=== PATIENT | female | born 2000 | race Caucasian/White ===

== ENCOUNTER 2024-03-22 17:21 | Emergency (ER) | payer BC, SELFPAY ==
[2024-03-22 17:23] VITALS: BP 118/72; PULSE 85; RESP 16; TEMP 36.1; O2SAT 98; BMI 29.0
--- NOTE | 2024-03-22 17:45 | EDS_ITS ---
HPI HPI - GI History of Present Illness Chief Complaint: Abd Pain Informant: patient and parent Narrative Narrative: 23-year-old female started having diffuse abdominal pain going up into her chest last night 9 PM while she was lying down it started. Since then she has noticed some worsening when she lies down which she states she cannot do, compared with being upright. She states the discomfort seems colicky. It is nonlateralizing, throughout her lower abdomen, up into her epigastrium and up into the mid chest. She has discomfort throughout her entire back all the way up to the shoulder blades but again nonlateralizing. She states her menstrual cycle started a day or so prior to yesterday, heavier than usual. She takes control medication and states she should not be . PFSH PFS Home Medications ?Medication ?Instructions ?Recorded ?Last Taken ?Type drospirenone 3 mg-ethinyl 1 tab PO DAILY 03/22/24 Unknown History estradiol 0.02 mg tablet hydrocodone-acetaminophen 5-325mg 1 tab PO Q6H PRN PRN Pain 2 days 03/22/24 Unknown Rx 5mg-325mg #6 TABLETS hyoscyamine sulfate 0.125 mg 0.125 mg PO Q6H PRN abdominal 03/22/24 Unknown Rx sublingual tablet (Levsin/SL) discomfort #15 tabs pantoprazole 40 mg tablet,delayed 40 mg PO DAILY #14 tabs 03/22/24 Unknown Rx release paroxetine HCl 10 mg tablet 10 mg PO QHS 03/22/24 Unknown History Allergy/AdvReac Type Severity Reaction Status Date / Time No Known Allergies Allergy Verified 03/22/24 17:22 Surgical History History of appendectomy Social History Smoking Status: Never smoker ROS ROS ED Constitutional Constitutional ED: Denies chills or fever(s) Eyes Eyes: Denies change in vision or diplopia ENT ENT ED: Denies rhinorrhea or sore throat Cardiovascular Cardiovascular: Denies chest pain or palpitations Respiratory/Chest Respiratory/Chest: Denies cough or dyspnea Gastrointestinal Gastrointestinal: Reports abdominal pain, diarrhea and nausea; Denies hematochezia, melena or vomiting Genitourinary Genitourinary ED: Reports vaginal bleeding and other Details: On menstrual cycle x 3 days ; Denies dysuria or hematuria Musculoskeletal Musculoskeletal: Reports back pain; Denies neck pain Integumentary Denies abscess or rash Neurologic Neurologic: Denies headache(s), paresthesias or weakness Psychiatric Psychiatric: Denies suicidal thoughts EXAM Physical Exam Const Vital Signs: 03/22/24 17:23 03/22/24 19:21 03/22/24 21:00 Temperature 97 F L Temperature Source Temporal Pulse Rate 85 69 84 Respiratory Rate 16 16 18 Blood Pressure 118/72 100/62 142/65 H Blood Pressure Mean 87 74 90 Pulse Ox 98 100 100 Oxygen Delivery Method Room Air Room Air Room Air Positive well nourished and well developed General Appearance ED: well developed and NAD HEENT Reports moist mucous membranes normocephalic and atraumatic Eyes PERRL and EOMs intact bilaterally Neck full ROM and supple Resp normal respiratory effort and clear to auscultation bilaterally Cardio regular rate, regular rhythm and no murmurs GI non-tender and non-distended Auscultation: normoactive bowel sounds Palpation: soft Speculum Exam - Vagina: vaginal bleeding Back/Spine no CVA tenderness General Back: other FROM Extremity normal to inspection General Extremety ED: Negative for edema, pulses abnormal or tenderness General Extremity: Negative for edema or pulses abnormal Neuro oriented x3, CN's II-XII intact bilaterally and no sensory deficits noted Sensorium / Orientation: awake and alert Motor Exam: strength 5/5 throughout Skin no rashes or lesions noted and no wounds MDM MDM MDM Narrative Medical decision making narrative: Patient with fairly diffuse symptoms and going up into her chest. Broad differential of intra-abdominal pathology here. She is tender in multiple areas across lower abdomen and epigastrium. Given the chest involvement and the worsening when lying down, I considered acid reflux and gastritis, so we started with a GI cocktail and dicyclomine along with some Zofran and IV fluids while obtaining liver enzymes, basic labs and lipase. In addition to that, EKG and chest x-ray were performed, two-view chest, both normal on my interpretation. Troponin is normal arguing against myocarditis or injury. Her liver enzymes are all normal, she has no leukocytosis, normal lipase, negative ruling out ectopic, and urinalysis unremarkable except for microscopic hematuria. However she is on her menstrual cycle, so this is probably contamination and not coming from the urinary tract given the history. On reevaluation, she is not feeling any better after the GI cocktail and dicyclomine. She states the pain is moved up more now and she points to the right upper quadrant. Therefore I think she may have more yield from an ultrasound than a CT scan, so obtain an ultrasound of the gallbladder and giving her Toradol and morphine for her pain. These medications really helped and she was feeling much better for the duration of the ED visit. I reviewed the ultrasound images and report which I agree with, it is normal with no stones. Although biliary colic is not impossible without stones it is much less likely. She is not having any ancillary evidence of acute cholecystitis. I reexamined her she was still having some mild right lower quadrant and epigastric tenderness. I offered a CT they were amenable to it. This was done I reviewed those images and result as well which I agree with, it is essentially normal. Her bladder was mentioned on the CT. Urinalysis is normal, except for microscopic hematuria but she is currently on her menses. Unclear if or how that is related. She states her cycle is heavy right now, and the pain could have been related to that but going up into her chest and more concerned about upper GI issues on putting her on a PPI, as needed Levsin and hydrocodone and follow-up as needed. Lab Data Attestation: I reviewed the patient's lab results. Labs: Laboratory Results - last 24 hr 03/22/24 03/22/24 18:05 18:40 WBC 8.2 RBC 4.27 Hgb 11.9 L Hct 36.3 L MCV 85.0 MCH 27.9 MCHC 32.8 RDW Std Deviation 40.0 RDW Coeff of [place] 13.0 Plt Count 325 MPV 10.4 Immature Gran % (Auto) 0.200 Neut % (Auto) 60.8 Lymph % (Auto) 28.4 [place] % (Auto) 8.1 Eos % (Auto) 1.6 Baso % (Auto) 0.9 Absolute Neuts (auto) 5.0 Absolute Lymphs (auto) 2.32 Nucleated RBC % 0 Sodium 136 Potassium 3.4 L Chloride 102 Carbon Dioxide 27.0 Anion Gap 7 BUN 5 L Creatinine 0.76 Estim Creat Clear Calc 108.69 Est GFR (MDRD) Af Amer 122 Est GFR (MDRD) Non-Af 101 BUN/Creatinine Ratio 6.5 L Glucose 94 Calcium 9.4 Total Bilirubin 0.40 AST 22 ALT 25 Alkaline Phosphatase 71 Troponin I High Sens 3 Total Protein 7.9 Albumin 3.6 Globulin 4.3 H Albumin/Globulin Ratio 0.8 L Lipase 30 Serum , Qual NEGATIVE Urine Color Yellow Urine Clarity Sl. Cloudy Urine pH 7.0 Ur Specific [place] 1.010 Urine Protein Negative Urine Glucose (UA) Normal Urine Ketones Negative Urine Occult Blood 250 H Urine Nitrite Negative Urine Bilirubin Negative Urine Urobilinogen Normal Ur Leukocyte Esterase 25 H Urine RBC 5-10 SEEN Urine WBC 0-5 SEEN Ur Squamous Epith Cells 0-5 SEEN Urine Bacteria 1+ Urine Mucus 0 SEEN Radiography Diagnostic Testing: Clinical Impression(s) from Imaging Studies Chest X-Ray 03/22/24 18:40 IMPRESSION: Normal x-ray examination of the chest. Electronically Signed: Alexandru Barker MD at 19:26 EDT , Gallbladder Ultrasound 03/22/24 19:04 IMPRESSION: Normal right upper quadrant ultrasound examination. Electronically Signed: Alexandru Barker MD at 20:38 EDT , Abdomen/Pelvis CT 03/22/24 20:46 IMPRESSION: No evidence for small bowel obstruction or other acute abnormality status post appendectomy. Incidental finding of bladder distention of uncertain etiology or clinical significance Electronically Signed: Alexandru Barker MD at 21:25 EDT , Discharge Plan Triage Chief Complaint: Abd Pain ED Provider: Stephen Browne Dx/Rx/DC Orders Clinical Impression: Diffuse abdominal pain, Chest pain, unspecified Instructions: Abdominal Pain Prescriptions: New pantoprazole 40 mg tablet,delayed release (DR/EC) 40 mg PO DAILY Qty: 14 0RF hyoscyamine sulfate [Levsin/SL] 0.125 mg tablet, sublingual 0.125 mg PO Q6H PRN (Reason: abdominal discomfort) Qty: 15 0RF hydrocodone-acetaminophen 5-325 mg tablet 1 tab PO Q6H PRN PRN (Reason: Pain) 2 Days Qty: 6 0RF No Action paroxetine HCl 10 mg tablet 10 mg PO QHS drospirenone-ethinyl estradiol 3-0.02 mg tablet 1 tab PO DAILY Primary Care Provider: Kateryna Aponte Referrals: Kateryna Aponte, FILM SOUND COORDINATOR-C [Primary Care Provider] - () Activity Restrictions/Additional Instructions: Is possible that your heavier than normal menstrual cycle is related to this as well; Follow-up if you continue having symptoms beyond your menstrual cycle. You may take ibuprofen on top of the prescribed occasions if you desire. Print Language: Swiss Disposition Disposition: Home, Self Care
--- NOTE | 2024-03-22 17:46 | EKG12_ITS ---
Test Reason : ABD PIN Blood Pressure : / mmHG Vent. Rate : 067 BPM Atrial Rate : 067 BPM P-R Int : 116 ms QRS Dur : 072 ms QT Int : 412 ms P-R-T Axes : 039 074 025 degrees QTc Int : 435 ms Normal sinus rhythm with sinus arrhythmia Normal ECG Confirmed by MANDI DANIELS, LALA ([id number]), advertising editor ISAC ALEJANDRE ([id number]) on 03/27/2024 8:42:25 AM Referred By: Confirmed By:CHIVO RAYMOND MD
--- NOTE | 2024-03-22 17:50 | NURSING ---
NO OLD EKGS
[2024-03-22 18:20] LABS: Absolute Lymphocyte Count 2.32 X10^3/uL (0.83-4.51); Basophil# 0.07 X10^3/uL; Basophil% 0.9 % (0-1); Eosinophil# 0.13 X10^3/uL; Eosinophils% 1.6 % (0-5); Hematocrit 36.3 % (37-47); Hemoglobin 11.9 g/dL (12.0-15.0); Lymphocyte # 2.32 X10^3/ul (0.83-4.51); Lymphocyte % 28.4 % (19-41); Mean Corp Hgb Conc 32.8 g/dL (32-36); Mean Corpuscular Hgb 27.9 pg (27.0-32.0); Mean Platelet Vol. 10.4 fl (6.2-12.0); Monocyte# 0.66 X10^3/uL; Monocyte% 8.1 % (0-10); NRBC Flagged by Analyzer 0 % (0-5); Neutrophil # 4.97 X10^3/uL (2.7-7.7); Neutrophil % 60.8 % (47-70); Platelet Count 325 K/mm3 (150-450); Red Blood Count 4.27 M/mm3 (4.2-5.4); White Blood Count 8.2 K/mm3 (4.4-11.0)
[2024-03-22] MEDS: Ondansetron 4 MG/2 ML Vial IV (18:32)
[2024-03-22] MEDS: Lidocaine 2% Viscous15 ML UDC 15 ML PO (18:33)
[2024-03-22] MEDS: Mag /Aluminum/Simeth WCH UDC 30 ML ORAL.SUSP PO (18:33)
[2024-03-22] MEDS: Dicyclomine 10 MG Capsule 20 MG PO (18:33)
[2024-03-22] MEDS: 0.9% Normal Saline (1000mL) 1,000 ML 999 ML IV (18:33)
[2024-03-22 18:34] LABS: ALB/GLOB Ratio 0.8 RATIO (0.9-2.4); AST(SGOT) 22 U/L (15-37); Alanine Aminotransfer ALT/SGPT 25 U/L (13-56); Albumin, Serum 3.6 g/dL (3.2-5.0); Alkaline Phosphatase 71 U/L (45-117); Anion Gap 7 (5-15); BUN 5 mg/dL (7-18); BUN/Creat Ratio 6.5 RATIO (10-20); Calcium,Total 9.4 mg/dL (8.5-10.1); Chloride 102 mmol/L (98-107); Creatinine, Serum 0.76 mg/dL (0.55-1.02); EST Glomerular Filtration Rate 101 mL/min (>60); Est Glom Filt Rate - Afr Amer 122 mL/min (>60); Estimated Creatinine Clearance 108.69 ml/min; Globulin 4.3 g/dL (2.2-4.2); Glucose 94 mg/dL (74-106); Lipase 30 U/L (13-75); Potassium 3.4 mmol/L (3.5-5.1); Protein, Total 7.9 g/dL (6.4-8.2); Sodium Level 136 mmol/L (136-145); Troponin-I HS 3 pg/mL (3.0-54.0)
--- NOTE | 2024-03-22 18:40 | RAD_ITS ---
STUDY: X-RAY CHEST REASON FOR EXAM: Female, 23 years old. chest upper abd pain TECHNIQUE: PA and lateral COMPARISON: None. FINDINGS: The lungs are clear and expanded. There is no demonstrated pleural abnormality. Normal size heart. Normal mediastinum and stephen. Normal visualized pulmonary arteries. Normal visualized aortic arch and descending thoracic aorta. Normal visualized thoracic spine. Normal visualized ribs, clavicles, and shoulders. There is no demonstrated abnormality of the visualized soft tissue structures of the upper abdomen. RAD/Chest PA and Lateral IMPRESSION: Normal x-ray examination of the chest. Electronically Signed: Alexandru Barker MD at 19:26 EDT ,
[2024-03-22 18:43] LABS: Internal QC Validated? YES +Cl - CLEAR BKGD; Pregnancy, Serum, hCG Quali. NEGATIVE Negative
[2024-03-22 18:47] LABS: Mucous, Urine 0 SEEN /hpf (<or=2+)
[2024-03-22 19:00] LABS: Color, Urine Yellow (Yellow); Glucose, Dipstick Normal (Normal); Ketone-Dipstick Negative (Negative); Leukocyte Esterase-Dipstick 25 /ul (Negative); Nitrite-Dipstick Negative (Negative); Occult Blood-Urine 250 /ul (Negative); Protein-Dipstick Negative (Negative); Urine Bilirubin Dipstick Negative (Negative); Urine Clarity Sl. Cloudy (Clear); Urine Urobilinogen Normal (Normal)
--- NOTE | 2024-03-22 19:04 | US_ITS ---
STUDY: ABDOMINAL ULTRASOUND - RIGHT UPPER QUADRANT REASON FOR VISIT: Female, 23 years old abd pain TECHNIQUE: Ultrasound evaluation of the right upper quadrant was performed with real-time and static chester-scale imaging. TECHNICAL QUALITY: Adequate. COMPARISON: None. FINDINGS: Liver: The liver measures 15.8 cm. There is normal echogenicity of the liver. The bile ducts are within normal limits. There is hepatic color flow. The direction of portal flow is hepatopetal. There is no demonstrated mass lesion. Gallbladder: Normal distended gallbladder. The gallbladder wall measures 2 mm. There is a negative sonographic Alonzo''s sign. There is no pericholecystic fluid. There are no gallstones. Common Bile Duct (C.B.D.): The common bile duct measures 3 mm. Pancreas: Normal size of the head, body and tail of the pancreas. There is normal echogenicity of the pancreas. There is no demonstrated pancreatic mass or cyst. Right Kidney: Normal size of the right kidney. The right kidney measures 9.6 x 5 x 3.5 cm. Normal renal cortex. The right cortex measures 1.6 cm. There is no demonstrated renal mass or cyst. There is no right hydronephrosis. US/Gallbladder IMPRESSION: Normal right upper quadrant ultrasound examination. Electronically Signed: Alexandru Barker MD at 20:38 EDT ,
[2024-03-22] MEDS: Morphine 4 MG/ML Syringe IV (19:12)
[2024-03-22] MEDS: Ketorolac 15 MG/ML Vial IV (19:12)
[2024-03-22 19:21] VITALS: BP 100/62; PULSE 69; RESP 16; O2SAT 100
[2024-03-22 19:25] LABS: Bacteria 1+ /hpf (None Seen); Red Blood Cells-Urine 5-10 SEEN /hpf (0-5); Squamous Epithelial Cells - UA 0-5 SEEN /hpf (5-10); White Blood Cells 0-5 SEEN /hpf (0-5)
--- NOTE | 2024-03-22 20:46 | CT_ITS ---
STUDY: CT ABDOMEN AND PELVIS WITH CONTRAST REASON FOR EXAM: Female, 23 years old. PAIN RADIATION DOSAGE (If Supplied By Facility): CTDIvol = ( 14.62 ) mGy, DLP = ( 787.23 ) mGycm TECHNIQUE: Transaxial images were obtained from the dome of the diaphragm to the symphysis pubis without oral contrast. IV 100mL [id number]-[id number] was administered. Sagittal and coronal images were reconstructed. Individualized dose optimization techniques were used for this CT. COMPARISON: None. FINDINGS: The visualized lung bases are unremarkable. The visualized portions of the heart are within normal limits. Normal liver. Normal gallbladder and extrahepatic biliary system. Normal spleen. Normal pancreas. Normal bilateral adrenal glands. Normal right kidney. Normal left kidney. Normal visualized stomach. Normal small intestine. Normal colon. Postsurgical change status post appendectomy. Normal abdominal aorta. Normal inferior vena cava. Normal retroperitoneum. Nonspecific bladder distention. Normal abdominal wall. Normal osseous structures. CT/Abdomen/Pelvis W IV Cont ONLY IMPRESSION: No evidence for small bowel obstruction or other acute abnormality status post appendectomy. Incidental finding of bladder distention of uncertain etiology or clinical significance Electronically Signed: Alexandru Barker MD at 21:25 EDT ,
[2024-03-22 21:00] VITALS: BP 142/65; PULSE 84; RESP 18; O2SAT 100
[2024-03-22 22:23] VITALS: BP 122/64; PULSE 79; RESP 18; TEMP 36.3; O2SAT 97
== END 2024-03-22 22:27 | disposition home or self-care (01) ==
PROVIDERS: Emergency Provider Emergency Medicine; PCP Nurse Practitioner Family; Visit Provider Emergency Medicine
DX: R10.84 Generalized abdominal pain (principal); R07.9 Chest pain, unspecified
CPT/HCPCS: 71046; 74177; 76705; 80053; 81001; 83690; 84484; 84703; 85025; 93005; 96361; 96374; 96375; 99284; J7030; Q9967; A4216; J2405